=== PATIENT | male | born 1995 | race Caucasian/White ===

== ENCOUNTER 2019-08-08 21:29 | Emergency (ER) | payer OTHER ==
[~2019-08-08] VITALS: Ht 177.8 cm; Wt 68.0 kg
[2019-08-08 21:37] VITALS: BP_SYST 128
--- NOTE | 2019-08-08 21:41 | NUR ---
Patient triaged and placed in waiting room. VSS and patient appears in no acute distress at this time. Accompanied by self, awaiting available bed, and MD notified of need for MSE.
--- NOTE | 2019-08-08 21:51 | NUR ---
Patient to ER chair to gown for evaluation. Side rails up. Report given to YOHANNES Montemayor
--- NOTE | 2019-08-08 21:55 | NUR ---
ER at Chairside examining patient.
--- NOTE | 2019-08-08 21:58 | NUR ---
Pt presents to the ER c/o metal debri in b/l eyes x today. Pt reports blurred vision and discomfort. Pt reports this has happened many times before where they have to take out metal debri from eyes. Pt denies pain. Visual acuity exam done under interventions.
--- NOTE | 2019-08-08 22:00 | NUR ---
Pt flushed eyes for 10 minutes at the eye station. Tolerated well.
--- NOTE | 2019-08-08 22:05 | NUR ---
Vision acuity charted under interventions.
[2019-08-08] MEDS ORDERED: TETRACAINE HCL/PF 0.5% OPHTHALMIC DROPS 4 ML OP ONE (22:30)
[2019-08-08] MEDS ORDERED: FLUORESCEIN SODIUM 1 MG OPHTHALMIC STRIP OP ONE (22:30)
[2019-08-08] MEDS ORDERED: ERYTHROMYCIN BASE 0.5% EYE OINT...G. OP ONE (22:45)
[2019-08-08] MEDS ORDERED: ERYTHROMYCIN BASE 0.5% EYE OINT...G. ONE (22:54)
--- NOTE | 2019-08-08 23:00 | NUR ---
Patient given written and verbal discharge instructions and verbalizes understanding. ER MD discussed with patient the results and treatment provided. Patient in stable condition. ID arm band removed. Opportunity for questions provided and answered.
[2019-08-08 23:20] VITALS: BP_SYST 128
== END 2019-08-08 23:00 | disposition home or self-care (01) ==
LOC: SED 21:29
DX: T15.11XA Foreign body in conjunctival sac, right eye, initial encounter (principal); X58.XXXA Exposure to other specified factors, initial encounter; Y93.89 Activity, other specified; Y92.810 Car as the place of occurrence of the external cause; Y99.8 Other external cause status
CPT/HCPCS: 99284